=== PATIENT | female | born 1965 | race African-American/Black ===

== ENCOUNTER 2018-11-12 07:29 | Outpatient (CLI) | payer BC ==
--- NOTE | 2018-11-12 09:42 | ULT ---
ULTRASOUND ABDOMEN COMPLETE: HISTORY: A 53-year-old female with periumbilical palpable mass. FINDINGS: The gallbladder has normal wall thickness and has no evidence of gallstones or sludge. The hepatic e chogenicity is normal. The kidneys have normal echogenicity, and there is no hydronephrosis. There is no splenomegaly. There is no abdominal aortic aneurysm. No free fluid is identified. The inferi or vena cava is visualized. The pancreas is visualized, although ultrasound is relatively insensitiv e for pancreatic pathology compared to CT and MRI. There is no biliary dilation. The common duct ca liber is 5 mm. At midline in the region of the palpable lump, there is a large solid mass with heter ogeneously hypoechoic internal contents, and well-circumscribed margins, measuring at least 14.5 x 10 x 12.5 cm. It appears to be connected to the uterus. IMPRESSION: Large midline abdominal mass is probably a portion of one or multiple large uterine leiomyomata (fibr oids). Recommend confirmation with CT of abdomen and pelvis (preferably with IV contrast unless cont raindicated). telly [] POS: JASON
== END 2018-11-12 07:30 | disposition home or self-care (01) ==
LOC: BICULT 07:29
PROVIDERS: ATTEND Nurse Practitioner Family
DX: R19.05 Periumbilic swelling, mass or lump (principal)
CPT/HCPCS: 76700

== ENCOUNTER 2018-11-30 08:24 | Outpatient (CLI) | payer BC ==
--- NOTE | 2018-11-30 09:08 | CT ---
EXAM: CT abdomen and pelvis with IV contrast PROVIDED CLINICAL HISTORY: Abnormal ultrasound COMPARISON: Ultrasound 11/12/2018 FINDINGS: The visualized lung bases are free of significant opacity. Simple appearing left renal cyst. The solid abdominal organs demonstrate an otherwise unremarkable CT appearance. Gallstones are noted. There is no bowel dilatation, inflammatory fat stranding, free fluid or free air apparent. There is n o evidence for appendicitis. There is a markedly enlarged uterus, measuring at least 16.4 cm in craniocaudal dimension by at least 11 x 14.6 cm in craniocaudal dimensions. Multiple uterine masses a re present including a large probably submucosal mass and a pedunculated mass along the right lateral margin at the fundus, statistically reflecting fibroids. No regional lymph node enlargement apparent. The regional major vascular structures appear unremarkab le. The osseous structures demonstrate no concerning lytic or blastic lesions. IMPRESSION: 1. Markedly enlarged uterus with multiple uterine masses presumably reflecting uterine fibroids. 2. Cholelithiasis.
== END 2018-11-30 08:25 | disposition home or self-care (01) ==
LOC: BICCT 08:24
PROVIDERS: ATTEND Nurse Practitioner Family
DX: R19.05 Periumbilic swelling, mass or lump (principal); K80.20 Calculus of gallbladder without cholecystitis without obstruction; N85.8 Other specified noninflammatory disorders of uterus
CPT/HCPCS: 74177

== ENCOUNTER 2019-02-28 15:09 | Outpatient (CLI) | payer BC ==
--- NOTE | 2019-02-28 15:57 | MMO ---
Bilateral MAMMO Bilat Screen DDI+BETSY. CLINICAL HISTORY: Patient is 53 years old and is seen for screening. VIEWS: The views performed were: . This study has been interpreted with the assistance of computer-aided detection. MAMMOGRAM FINDINGS: The breasts are heterogeneously dense, which could obscure a lesion on mammography. There are no suspicious masses, suspicious calcifications, or new areas of architectural distortion. IMPRESSION: THERE IS NO MAMMOGRAPHIC EVIDENCE OF MALIGNANCY. A ROUTINE FOLLOW-UP MAMMOGRAM IN 1 YEAR IS RECOMMENDED. THE RESULTS OF THIS EXAM WERE SENT TO THE PATIENT. ACR BI-RADS Category 1 - Negative MAMMOGRAPHY NOTE: 1. A negative mammogram report should not delay a biopsy if a dominant of clinically suspicious mass is present. 2. Approximately 10% to 15% of breast cancers are not detected by mammography. 3. Adenosis and dense breasts may obscure an underlying neoplasm. Reported by: SANDER GONSALEZ MD Electonically Signed: [id number]
== END 2019-02-28 15:10 | disposition home or self-care (01) ==
LOC: BICMAMMO 15:09
PROVIDERS: ATTEND Nurse Practitioner Family
DX: Z12.31 Encounter for screening mammogram for malignant neoplasm of breast (principal)
CPT/HCPCS: 77063; 77067

== ENCOUNTER 2019-04-17 16:00 | Inpatient (IN) | payer BC ==
[2019-04-17 16:01] VITALS: BMI 36.6
[2019-04-17 16:54] LABS: Hemoglobin 14.3 g/dL (12.0-16.0); Mean Corpuscular HGB CONC 33.2 g/dL (32.0-36.0); Mean Corpuscular Hemoglobin 30.3 pg (27.0-31.0); Mean Corpuscular Volume 91.3 fL (78.0-98.0); Mean Platelet Volume 7.2 fL (7.4-10.4); Platelet Count 250 thou/uL (130-400); RBC Distribution Width 12.3 % (11.5-14.5); Red Blood Cell (RBC) Count 4.72 mill/uL (4.20-5.40)
[2019-04-17 17:16] LABS: ALT (SGPT) 30 U/L (8-55); AST (SGOT) 28 U/L (5-34); Albumin 4.3 g/dL (3.5-5.0); Alkaline Phosphatase 103 U/L (40-110); Anion Gap 11 mmol/L (10-20); BUN (Urea Nitrogen) 11 mg/dL (9.8-20.1); Bilirubin, Total 0.8 mg/dL (0.2-1.2); Calc. Creatinine Clearance 0 mL/min (70-130); Calcium 9.6 mg/dL (7.8-10.44); Carbon Dioxide 28 mmol/L (22-29); Chloride 104 mmol/L (98-107); Estimated GFR-MDRD 68; Globulin 3.9 g/dL (2.4-3.5); Glucose 82 mg/dL (70-105); Potassium 3.9 mmol/L (3.5-5.1); Protein, Total 8.2 g/dL (6.0-8.3); Sodium 139 mmol/L (136-145)
[2019-04-17 17:25] LABS: Band 1 % (5-11); Eosinophils 3 % (0-10); Lymphocytes 58 % (21-51); MDiff Complete? YES; Monocytes 9 % (0-10); Neutrophil 28 % (42-75); Platelet Morphology Comment Appears Adequate; RBC Morphology Normal; Reactive Lymphocytes 1 % (0-10)
[2019-04-17 17:44] LABS: BHCG - Serum Negative (NEGATIVE); Pregs Control Background? CLEAR/WHITE (CLR/WHITE); Pregs Control Bar Appear? YES (CONTROL BAR)
--- NOTE | 2019-04-18 01:20 | HP ---
She is scheduled for surgery on 04/18/2019. HISTORY OF PRESENT ILLNESS: Ms. Garrison is a 53-year-old female, G0, who was noted to have a CAT scan early in the fall of this year for abdominal pain along with ultrasound. During the ER visit, she was noted to have very large uterine fibroids and also cholelithiasis. She still reports monthly menses, but not every month, which are very heavy. She is having a cholecystectomy also in conjunction with Dr. Diego from the General Surgery Department. Pap smear was negative in 2018. PAST MEDICAL HISTORY: Otherwise negative. PAST SURGICAL HISTORY: Unremarkable. CURRENT MEDICATIONS: None. ALLERGIES: SHE HAS NO KNOWN DRUG ALLERGIES. SOCIAL HISTORY: She is a nonsmoker. No excessive alcohol use. FAMILY HISTORY: Her father had carcinoma of the skin, head and neck region. PHYSICAL EXAMINATION: VITAL SIGNS: Height is 5 feet 6 inches, weight 231 with BMI 37.3, blood pressure 124/84, pulse 85, respirations 18, and O2 saturation on room air 99%. HEENT: Within normal limits. CHEST: Clear to auscultation. HEART: Regular rate and rhythm. S1, S2 heart sounds. No murmurs, rubs, or gallops. ABDOMEN: Soft. There is no tenderness. She does have a very large uterine masses palpable above the umbilicus, approximately measuring uterine size being six months size or 24 weeks. No obvious hernias were palpable. PELVIC: Vulva and vagina had no lesions. Cervix had no gross lesions. Uterus was noted to be very enlarged, irregular fibroids with a regular contour, 6 months size. ASSESSMENT: This is a 53-year-old female, G0, with 24 week size uterine fibroid. She has experienced menorrhagia and pelvic pressure and urinary frequency due to the pelvic mass effect. She also has symptomatic cholelithiasis and is undergoing cholecystectomy at this time of the surgery. PLAN: Plan is to proceed with ARACELI BSO due to the very large size of the uterus and along with cholecystectomy performed by Dr. Diego. Risks and benefits of the procedure were discussed in detail. She is set for surgery on 04/18. Job ID: [id number]
[2019-04-18] MEDS ORDERED: Scopolamine 1.5 mg/72 hour Patch ONE (09:11)
[2019-04-18] MEDS ORDERED: Midazolam HCl 2 mg/2 ml Vial ONE ×2 (09:11→10:25)
[2019-04-18] MEDS ORDERED: Lidocaine 1% w/Epinephrine 1:100K 20 ML VIAL ONE (10:23)
[2019-04-18] MEDS ORDERED: Bupivacaine 0.25% HCL 30 ML VIAL ONE (10:23)
[2019-04-18] MEDS ORDERED: Fentanyl 250 MCG/5 ML VIAL ONE (10:25)
[2019-04-18] MEDS ORDERED: PROPOFOL 200 MG/20 ML VIAL ONE (12:31)
[2019-04-18] MEDS ORDERED: Labetalol HCl 100 MG/20 ML VIAL ONE (12:31)
[2019-04-18] MEDS ORDERED: Dexamethasone 20 MG/5 ML VIAL ONE (12:31)
[2019-04-18] MEDS ORDERED: Lidocaine 1% PF 5 ML VIAL ONE (12:31)
[2019-04-18] MEDS ORDERED: Ketorolac Tromethamine 30 MG/ML VIAL ONE (12:31)
[2019-04-18] MEDS ORDERED: Rocuronium Bromide 10 MG/ML (10ML VIAL) ONE (12:31)
[2019-04-18] MEDS ORDERED: Ondansetron PF 4 MG/2 ML Vial ONE (12:31)
[2019-04-18] MEDS ORDERED: Glycopyrrolate 0.2 MG/ML 5 ML SYRINGE ONE (12:31)
[2019-04-18] MEDS ORDERED: Ropivacaine HCl/PF 750 ML in Premix Bag 1 BAG NERVE BLCK SCH (13:15)
[2019-04-18] MEDS ORDERED: Labetalol HCl 100 MG/20 ML VIAL SLOW IVP PRN (13:52)
[2019-04-18] MEDS ORDERED: Ondansetron HCl/PF 4 MG/2 ML Vial IVP PRN (14:02)
[2019-04-18] MEDS ORDERED: Promethazine HCl 25 MG/ML VIAL IM PRN ×2 (14:02→16:44)
[2019-04-18] MEDS ORDERED: Promethazine HCl 25 MG/ML VIAL SLOW IVP PRN (14:02)
[2019-04-18] MEDS ORDERED: Fentanyl 100 MCG/2 ML VIAL ONE ×2 (14:25→15:03)
[2019-04-18] MEDS ORDERED: Ondansetron PF 4 MG/2 ML Vial IVP PRN (16:44)
[2019-04-18] MEDS ORDERED: Simethicone Chewable 80 MG TAB PO PRN (16:44)
[2019-04-18] MEDS ORDERED: diphenhydrAMINE 25 MG CAP PO PRN (16:44)
[2019-04-18] MEDS ORDERED: Bisacodyl 10 MG SUPP PR PRN (16:44)
[2019-04-18] MEDS ORDERED: Zolpidem Tartrate 5 MG TAB PO PRN (16:44)
[2019-04-18] MEDS ORDERED: Acetaminophen 325 MG TAB PO PRN (16:44)
[2019-04-18] MEDS ORDERED: HYDROcodone/Acetaminophen 5/325 mg Tablet PO PRN (16:44)
[2019-04-18] MEDS ORDERED: Morphine 4 MG/ML VIAL SLOW IVP PRN (16:44)
[2019-04-18] MEDS ORDERED: Estradiol 0.05mg/24 Hour Patch (Weekly) TD SCH (17:15)
[2019-04-18] MEDS: HYDROcodone/Acetaminophen 5/325 mg Tablet PO PRN (17:39)
[2019-04-18] MEDS: Sodium Chloride 0.9% 1,000 ML IV SCH ×2 (18:15→19:38)
[2019-04-18] MEDS: Lactated Ringer's 1,000 ML IV SCH ×2 (18:15→19:36)
[2019-04-18] MEDS: Ibuprofen 800 MG TAB PO SCH (19:38)
--- NOTE | 2019-04-18 21:57 | OP ---
DATE OF PROCEDURE: 04/18/2019 PREOPERATIVE DIAGNOSES: 1. A 53-year-old female, G0 with large 24-week size uterine fibroids. 2. Menorrhagia. 3. Pelvic pain. 4. Also, additional diagnosis, symptomatic cholelithiasis treated by Dr. Diego during this surgery with laparoscopic cholecystectomy. POSTOPERATIVE DIAGNOSES: 1. A 53-year-old female, G0 with large 24-week size uterine fibroids. 2. Menorrhagia. 3. Pelvic pain. 4. Also, additional diagnosis, symptomatic cholelithiasis treated by Dr. Diego during this surgery with laparoscopic cholecystectomy. ANESTHESIA: General endotracheal. ESTIMATED BLOOD LOSS: From the hysterectomy was 50 mL. METAL GAUGE MAKER SURGEON: Sandra Cotter DO FINDINGS: 1. Very large, irregular-shaped uterus with multiple large subserosal, intramural, and pedunculated fibroids. 2. Normal-appearing fallopian tubes and ovaries. 3. Clear urine present in Randolph catheter postprocedure. 4. In addition, On-Q pain pumps placed for the patient's analgesia. COUNTS: Correct x2. DISPOSITION: Recovery room, stable. DESCRIPTION OF PROCEDURE: The patient previously received informed consent in regard to surgery. She had already been placed in the supine position and prepped and draped when I arrived to the operating room after being status post lap cholecystectomy by Dr. Diego from General Surgery. Randolph catheter was placed and draining well. A midline vertical skin incision was made from the symphysis pubis to just below the umbilicus. This carried down through the subcutaneous tissue and bleeders were coagulated. The fascia was identified. It was incised vertically both with Crystal scissors and cautery. We then divided the rectus muscle bellies in the midline. Peritoneal cavity was entered. The peritoneal incision was extended. The large uterus was then manipulated and was brought through the abdominal incision. At this time, an O'Luis E-O'Orr retractor was then placed and the bowel was packed away above the umbilicus with a burrito pack of lap sponge and one additional laparotomy towel. After the bowel had been cleared from the area, operative field was exposed. The lower blade was also placed retracting the lower fascia in the peritoneum away from the lower uterine segment. The Lyn clamps were placed at the cornua on each side. The right round ligament was identified. It was suture ligated with 0 Vicryl suture and transected. The anterior vesicouterine peritoneal bladder flap was then created in both sharp and blunt dissection along with Bovie cautery, dropping the bladder past the cervical-vaginal angle both sharply and bluntly. A window in the posterior broad ligament was made just below the ovary and the IP ligament, and then a Jacquelyn clamp was placed across this, clamping the IP ligament. A 4-1/2 tie of 0 Vicryl was then placed. The right uterine vessels were then skeletonized sharply with Metzenbaum scissors. Just below the bulk of the uterine masses in the internal cervical os region, the vessels were clamped with curved Jacquelyn clamps and transected. These were ligated with a Jacquelyn suture of 0 Vicryl suture securing hemostasis. Likewise fashion, the left round ligament was identified. It was suture ligated and transected with the Bovie cautery and then again the anterior leaf of the broad ligament was entered, creating the bladder flap in usual fashion, dissecting the bladder atraumatically past the cervical vaginal margin. Again, a posterior defect in the broad ligament was made just below the IP ligament and then this was clamped, removing the ovary and fallopian tube. The IP ligament on the left side was secured with a free tie of 0 Vicryl and then a 4-1/2 tie of 0 Vicryl. The uterine vessels again were skeletonized from the broad ligament, and then they were isolated and clamped with a Jacquelyn clamp in the internal cervical os region. These were transected and suture ligated with a Jacquelyn stitch of 0 Vicryl suture. In order to better visualize the pelvis, the bulk of the large myomas were then removed superior to the last pedicle of the uterine vessels with Bovie cautery. A malleable was placed behind to protect the bowel. The large bulky corpus of the uterus was then removed. The cervical stump then remained. Two Gray clamps were then placed anterior and posteriorly on the cervical stump for retraction. The bladder was further dissected atraumatically past the cervical-vaginal angle and the cervical stump was cleaned up with Metzenbaum sutures and cautery. The straight [place] clamps were then placed in the remainder of the cardinal ligaments and uterosacral ligaments. These were transected and suture ligated, and the vaginal angles were reached. Two Jacquelyn clamps were then placed across this inferior to the cervix and then the specimen was excised with Crystal scissors. Long 0-Vicryl swaged-on sutures were then placed in Hofmeister stitch fashion in the vaginal angle securing hemostasis. An additional gaskds-ms-cdchx stitch of 0 Vicryl was placed in the midline of the vaginal cuff securing hemostasis. The pelvis was then irrigated and all the pedicle sites were inspected and hemostasis was confirmed. There was an area of some oozing on the peritoneum on the left pelvic sidewall, and this was made hemostatic with 2-0 Vicryl suture in running locking fashion x3 throws. Again, pelvis was irrigated and suctioned, hemostasis confirmed. The Jacquelyn retractor was removed. All the lap sponge count was correct. The peritoneum and the edges were then grasped with two hemostat clamps and the peritoneum was approximated with 2-0 Vicryl. We then assembled the On-Q pain pump trocar needles. The upper edge of the fascia was grasped with a Gray clamp, and each right and left edge in the midline were grasped with 2 Gray clamps. We did a double-loop 0 PDS sutures, placed in the apex of the superior fascial incision, and several throws of this were placed. Then, we placed the trocars of the On-Q pumps superiorly and then inferiorly just under the fascia above the peritoneum and muscle down into the inferior edge of the incision sites. The needles were pulled back on each trocar sleeve. We then continued to close the fascia full-thickness closure with a double-loop 0 PDS until the inferior edge of the fascia was reached, and this was tied and secured. The double-lumen On-Q pump catheters were then placed through the previous trocar sleeves and these were placed down underneath the subfascial incision sites. The trocar sleeves were then withdrawn and then the catheters were flushed easily on both sides with 5 mL of Marcaine. The subcutaneous tissues were closed with a 3-0 plain gut after hemostasis was confirmed. The skin was closed with cheikh. The On-Q pump catheters were secured and bandage was placed. The patient was awakened from anesthesia and transferred to recovery room in stable condition. Job ID: [id number]
[2019-04-19 05:43] LABS: Hemoglobin 12.4 g/dL (12.0-16.0); Mean Corpuscular Hemoglobin 29.8 pg (27.0-31.0); Mean Corpuscular Volume 90.2 fL (78.0-98.0); Mean Platelet Volume 7.7 fL (7.4-10.4); Platelet Count 209 thou/uL (130-400); RBC Distribution Width 12.3 % (11.5-14.5); Red Blood Cell (RBC) Count 4.16 mill/uL (4.20-5.40); White Blood Cell (WBC) Count 8.2 thou/uL (4.8-10.8)
--- NOTE | 2019-04-19 07:28 | PDOC.EVN ---
Event Note - Event Note Event Note: Tolerating liquids. Good pain control with ON Q pain pump. No nausea. O:AFVSS 146/77 Pulse 85 T98. HCT 37.5% U/O 2400 ml ABDOMEN:soft/non distended. Incision clean, dry, intact. A/P: Post op day 1 from ARACELI?BSO for large uterine fibroids and lap cholecystectomy by Dr Diego. Hemodynamically stable. Good pain control. Advance diet and activity. Assess progress. Anticipate discharge in AM.
[2019-04-19] MEDS: Ibuprofen 800 MG TAB PO SCH ×2 (08:42→20:34)
[2019-04-19] MEDS: Lactated Ringer's 1,000 ML IV SCH (18:46)
[2019-04-19] MEDS: Sodium Chloride 0.9% 1,000 ML IV SCH ×2 (18:46→20:34)
[2019-04-19] MEDS: HYDROcodone/Acetaminophen 5/325 mg Tablet PO PRN (18:54)
[2019-04-20] MEDS: Lactated Ringer's 1,000 ML IV SCH (00:42)
[2019-04-20] MEDS: Sodium Chloride 0.9% 1,000 ML IV SCH (00:42)
[2019-04-20] MEDS: Ibuprofen 800 MG TAB PO SCH (07:55)
--- NOTE | 2019-04-20 08:06 | PDOC.EVN ---
Event Note - Event Note Event Note: Tolerating diet...Ambulating and voiding. Good pain control O:AFVSS abdomen soft/non distended. incision c/d/i EXT: nont tender. A/P: post op day 2 from lap cholecystectomy andTAH/BSO. Doing well d/c home..F/ u post dau7 and 6 weeks.
--- NOTE | 2019-04-20 10:49 | DIS ---
DATE OF ADMISSION: 04/18/2019 DATE OF DISCHARGE: 04/20/2019 DIAGNOSES: 1. Symptomatic large uterine fibroids. 2. Menorrhagia, pelvic pain. 3. Symptomatic cholelithiasis. PROCEDURES PERFORMED: 1. Total abdominal hysterectomy, bilateral salpingo-oophorectomy. 2. Laparoscopic cholecystectomy by Dr. Diego, General Surgery. SUMMARY OF HOSPITAL COURSE: Ms. Garrison is a 53-year-old female, who had very large uterine fibroids and also symptomatic cholelithiasis, underwent surgical intervention and therapy on 04/18. Postoperatively, the patient has done well. Her vital signs remained stable. Hematocrit was 37% on postop day #1. She has been ambulating, voiding, and tolerating diet without difficulty. Pain control has been adequate with the use of On-Q pain pump and oral [place]. She was discharged on postop day #2. Discharge medications will be resume her maintenance medications for chronic hypertension along with the [place] 5/325 one to two q.6 hours p.r.n. pain. She is given instructions for the On-Q pump and we will instruct to remove the catheters once the medication is completed. She has a followup on postop day #7 for staple removal and incision check in 6 weeks. Pathology is pending at the time of this discharge. Job ID: [id number]
[2019-04-20 12:01] VITALS: BP 152/83; TEMP 98.7
--- NOTE | 2019-04-24 22:53 | PDOC.OP ---
Operative Note - Operative Note Operative Note: DATE OF PROCEDURE: PROCEDURES: Laparoscopic cholecystectomy. SURGEON: Mitul Diego M.D. DUPLICATING MACHINE SERVICER: Steve Duval MS 3 PREOPERATIVE DIAGNOSIS: Symptomatic cholelithiasis POSTOPERATIVE DIAGNOSIS: Symptomatic cholelithiasis FINDINGS: Distended thin walled gallbladder. Omental adhesions to the liver lateral to the gallbladder. HISTORY: Patient with symptoms of biliary colic. Laparoscopic cholecystectomy was recommended for symptomatic relief. Preoperative LFTs were normal and bile duct was normal caliber on preoperative imaging. She also has extremely large fibroid uterus and the plan is for her to undergo open hysterectomy by Dr. Hahn under the same anesthesia as her laparoscopic cholecystectomy. This is dictated under separate cover. PROCEDURE: After informed consent was obtained and appropriate preoperative antibiotics were administered, the patient was taken to the operating room and placed in the supine position and general endotracheal anesthesia was administered. The stomach was decompressed with an OG tube and the abdomen was prepped and draped in standard sterile fashion. Local anesthesia was infused to the skin and subcutaneous tissues at the umbilical level. A transverse skin incision was made. The fascia was elevated and a Veress needle was placed into the abdominal cavity without difficulty. Opening pressure was less than 5 and carbon dioxide gas easily insufflated to an intra-abdominal pressure of 15, which the patient tolerated well. The Veress needle was withdrawn and a [place] port advanced under direct vision. The abdominal cavity was carefully examined. There was no evidence of Veress needle or of trocar injury. Local anesthesia was infused to the skin and subcutaneous tissues at the epigastric, right upper quadrant, and right lateral abdominal sites and trocars were placed under direct vision of the laparoscope. The fundus of the gallbladder was grasped and retracted superiorly. The omental adhesions to the liver lateral to the gallbladder were taken down using electrocautery to allow complete exposure of the gallbladder. The infundibulum was grasped and retracted laterally. The serosa was stripped inferiorly at the level of the neck of the gallbladder exposing the cystic duct and artery which were traced clearly to their insertion in the gallbladder. Critical view of safety was obtained and the cystic duct and artery were clipped and divided between clips. The gallbladder was then dissected free of the gallbladder bed using hook electrocautery. Prior to complete removal of the gallbladder from the gallbladder bed, the area of the cystic duct and artery stumps was examined. The clips were in good position completely across these structures and there was no bleeding and no leakage of bile. The gallbladder was then placed into an EndoCatch bag and drawn out through the epigastric incision. The epigastric trocar was replaced and the operative site easily irrigated to clear. There was no significant bleeding or spillage of bile. The epigastric trocar was removed and the fascia closed under direct laparoscopic vision with a 0 Vicryl suture on a GraNee needle in a [id number] manner with excellent technical result. The right upper quadrant and right lateral abdominal trocars were removed and hemostasis verified. Carbon dioxide gas was allowed to desufflate through the umbilical trocar which was then removed. The skin incisions were closed with 4-0 subcuticular Monocryl sutures and Dermabond dressings were placed. The patient was extubated and taken to the recovery room in good condition. There were no complications. ESTIMATED BLOOD LOSS: Minimal. SPECIMEN : Gallbladder and contents.
--- NOTE | 2019-04-29 23:48 | PQF ---
SAP Telephone Repairer Crystal Reports CLEM Brown CYNTHIA A MD [id number] SURG A- [id number] CLINICAL DOCUMENTATION CLARIFICATION FORM: POST DISCHARGE Addendum to original discharge summary date: ____ Late entry note date: __ DATE: 04/29/2019 ATTN: Mayda Hahn Please exercise your independent, professional judgment in responding to the clarification form. Clinical indicators are provided on the bottom of this form for your review Final Diagnosis on the Pathology report: Chronic cholecystitis and cholelithiasis Discharge summary indicate: Symptomatic cholelithiasis Clarification of Pathology report: Please check appropriate box(s): [ ] Agree w the pathology finding of: Chronic cholecystitis with cholelithiasis [ ] Other explanation of pathology findings (please specify) [ ] Other diagnosis [ ] Unable to determine For continuity of documentation, please document condition throughout progress notes and discharge summary. Thank You. CLINICAL INDICATORS - SIGNS/ SYMPTOMS / LABS Chronic cholecystitis, cholelithiasis - Pathology report dated 04/18 Symptomatic cholelithiasis - Discharge summary by Mayda Shay She has symptomatic cholelithiasis and is undergoing cholecystectomy at this time of the surgery - H and P dated 04/18 RISK FACTORS Symptomatic large uterine fibroids - Discharge summary by Dr. Hahn TREATMENTS Laparoscopic cholecystectomy done by Dr. Diego - OP report (This form is maintained as a part of the permanent medical record) 2014 [employer]. All Rights Reserved [email or web address] [phone] [email or web address]
== END 2019-04-20 15:00 | disposition home or self-care (01) | DRG 743 ==
LOC: SURG A 04-18 08:05
PROVIDERS: ADMIT Obstetrics & Gynecology; ATTEND Obstetrics & Gynecology
PROC: 0UT90ZZ Resection of Uterus, Open Approach (ICD-10-PCS; principal; 2019-04-18)
PROC: 0UT70ZZ Resection of Bilateral Fallopian Tubes, Open Approach (ICD-10-PCS; 2019-04-18)
PROC: 0UT20ZZ Resection of Bilateral Ovaries, Open Approach (ICD-10-PCS; 2019-04-18)
PROC: 0FT44ZZ Resection of Gallbladder, Percutaneous Endoscopic Approach (ICD-10-PCS; 2019-04-18)
DX: D25.9 Leiomyoma of uterus, unspecified (principal); N92.0 Excessive and frequent menstruation with regular cycle
CPT/HCPCS: 36415; 80053; 84703; 85025; 85027; 86850; 86900; 86901; 88304; 88307; J0131; J0690; J1100; J1885; J2001; J2250; J2270; J2405; J2704; J3010; S0020

== ENCOUNTER 2020-03-02 14:59 | Outpatient (CLI) | payer BC ==
--- NOTE | 2020-03-02 15:43 | MMO ---
Bilateral MAMMO Bilat Screen DDI+BETSY. CLINICAL HISTORY: Patient is 54 years old and is seen for screening. The patient has no family history of breast cancer. The patient has no personal history of cancer. VIEWS: The views performed were: bilateral craniocaudal with tomosynthesis and bilateral mediolateral oblique with tomosynthesis. FILMS COMPARED: The present examination has been compared to a prior imaging study performed at [facility] on 02/28/2019. This study has been interpreted with the assistance of computer-aided detection. MAMMOGRAM FINDINGS: The breasts are heterogeneously dense, which could obscure a lesion on mammography. There are no suspicious masses, suspicious calcifications, or new areas of architectural distortion. IMPRESSION: THERE IS NO MAMMOGRAPHIC EVIDENCE OF MALIGNANCY. A ROUTINE FOLLOW-UP MAMMOGRAM IN 1 YEAR IS RECOMMENDED. THE RESULTS OF THIS EXAM WERE SENT TO THE PATIENT. ACR BI-RADS Category 1 - Negative MAMMOGRAPHY NOTE: 1. A negative mammogram report should not delay a biopsy if a dominant of clinically suspicious mass is present. 2. Approximately 10% to 15% of breast cancers are not detected by mammography. 3. Adenosis and dense breasts may obscure an underlying neoplasm. Reported by: SANDER GONSALEZ MD Electonically Signed: [id number]
== END 2020-03-02 15:00 | disposition home or self-care (01) ==
LOC: BICMAMMO 14:59
PROVIDERS: ATTEND Nurse Practitioner Family
DX: Z12.31 Encounter for screening mammogram for malignant neoplasm of breast (principal)
CPT/HCPCS: 77063; 77067

== ENCOUNTER 2021-03-04 15:05 | Outpatient (CLI) | payer BC | END 2021-03-04 15:06 | disposition home or self-care (01) | LOC: BICMAMMO 15:05 | PROVIDERS: ATTEND Nurse Practitioner Family | DX: Z12.31 Encounter for screening mammogram for malignant neoplasm of breast (principal) | CPT/HCPCS: 77063; 77067 ==

== ENCOUNTER 2022-03-07 15:04 | Outpatient (CLI) | payer BC | END 2022-03-07 15:05 | disposition home or self-care (01) | LOC: BICMAMMO 15:04 | PROVIDERS: ATTEND Physician Assistant | DX: Z12.31 Encounter for screening mammogram for malignant neoplasm of breast (principal) | CPT/HCPCS: 77063; 77067 ==

== ENCOUNTER 2023-03-30 13:53 | Outpatient (CLI) | payer BC | END 2023-03-30 13:54 | disposition home or self-care (01) | LOC: BICMAMMO 13:53 | PROVIDERS: ATTEND Nurse Practitioner Family | DX: Z12.31 Encounter for screening mammogram for malignant neoplasm of breast (principal) | CPT/HCPCS: 77063; 77067 ==